=== PATIENT | female | born 1975 | race Hispanic/Latino ===

== ENCOUNTER 2018-09-22 15:05 | Emergency (ER) | payer BC ==
[2018-09-22 15:23] VITALS: BMI 26.2
[2018-09-22 15:26] VITALS: O2SAT 97
[2018-09-22] MEDS ORDERED: Sodium Chloride 0.9% 1,000 ML ONE (15:39)
[2018-09-22] MEDS ORDERED: Sodium Chloride 0.9% 1,000 ML IV ONE (15:41)
[2018-09-22 15:56] LABS: BASO # 0.1 K/uL (0.0-0.2); BASO % 0.5 % (0.0-2.0); EOS % 0.1 % (0.0-4.0); HEMOGLOBIN 14.9 g/dL (11.0-16.0); LYMPH # 1.6 K/uL (1.0-4.3); MEAN CELL VOLUME 86.3 fL (81.0-99.0); MEAN CORPUSCULAR HEMOGLOBIN 29.2 pg (27.0-31.0); MEAN CORPUSCULAR HGB CONC 33.8 g/dL (33.0-37.0); MONO # 0.3 K/uL (0.0-0.8); MONO % 2.9 % (0.0-10.0); NEUT # 9.3 K/uL (1.8-7.0); NEUT % 82.5 % (50.0-75.0); RBC 5.1 Mil/uL (3.80-5.20); RED CELL DISTRIBUTION WIDTH 13.9 % (11.5-14.5); WHITE BLOOD COUNT 11.3 K/uL (4.8-10.8)
[2018-09-22 16:10] LABS: ALB/GLOB RATIO 1.3 (1.0-2.1); ALBUMIN 4.9 g/dL (3.5-5.0); ALT/SGPT 25 U/L (9-52); AST/SGOT 21 U/L (14-36); BLOOD UREA NITROGEN 14 mg/dL (7-17); CALCIUM 9.9 mg/dl (8.6-10.4); GFR NON-AFRICAN AMERICAN > 60; LIPASE 52 U/L (23-300)
--- NOTE | 2018-09-22 16:21 | RAD ---
Date of service: 09/22/2018 PROCEDURE: Radiographs of the chest and abdomen (obstructive series) HISTORY: abd pain COMPARISON: No prior. TECHNIQUE: AP radiograph of the chest, with upright and supine radiographs of the abdomen. FINDINGS: CHEST: Lungs: No acute infiltrate bilaterally. Linear atelectasis or fibrosis in the left base. Cardiovascular: Normal size heart. No pulmonary vascular congestion. No aortic atherosclerotic calcification present Pleura: No pleural fluid. No pneumothorax. Other findings: Elevated right hemidiaphragm noted. ABDOMEN AND PELVIS: Bowel: Unremarkable bowel gas pattern. No evidence of mechanical obstruction. Free air: None. Bones: Unremarkable. Other findings: None. IMPRESSION: Linear atelectasis or fibrosis seen at the left base with elevated right hemidiaphragm noted. No acute infiltrate or pleural effusion identified bilaterally. Nonobstructive bowel gas pattern appreciated. Further clinical correlation recommended. CT is available for follow-up if clinically warranted.
[2018-09-22 17:06] LABS: SQUAMOUS EPITHIAL 1 /hpf (0-5); URINE BACTERIA RARE (<OCC); URINE BILIRUBIN NEGATIVE (NEGATIVE); URINE BLOOD NEGATIVE (NEGATIVE); URINE CLARITY Clear (Clear); URINE COLOR Yellow (YELLOW); URINE GLUCOSE (UA) 1+ mg/dL (Normal); URINE LEUKOCYTE ESTERASE NEG Leu/uL (Negative); URINE PROTEIN 2+ mg/dL (NEGATIVE); URINE UROBILINOGEN NORMAL mg/dL (0.2-1.0)
--- NOTE | 2018-09-22 17:18 | C.PDOC ---
History Of Present Illness 43 year old female presents to the ED for evaluation of epigastric abdominal pain associated with nausea and vomiting since 0600 today. Patient reports positive sick contact with her son. She denies fever, chills, chest pain, shortness of breath, recent travel. Patient has history of liposuction, but otherwise denies surgical abdominal history. Time Seen by Provider: 09/22/18 15:22 Chief Complaint (Nursing): Abdominal Pain History Per: Patient History/Exam Limitations: no limitations Onset/Duration Of Symptoms: Hrs Current Symptoms Are (Timing): Still Present Location Of Pain/Discomfort: Epigastric Quality Of Discomfort: "Pain" Associated Symptoms: Nausea, Vomiting. denies: Fever, Chills, Chest Pain Recent travel outside of the [place]: No Additional History Per: Patient Abnormal Vaginal Bleeding: No Past Medical History Reviewed: Historical Data, Nursing Documentation, Vital Signs Vital Signs: Last Vital Signs Temp 98.3 F 09/22/18 15:23 Pulse 77 09/22/18 15:23 Resp 20 09/22/18 15:23 BP 143/87 09/22/18 15:23 Pulse Ox 97 09/22/18 15:23 - Medical History PMH: No Chronic Diseases Surgical History: No Surg Hx - [facility] Procedures LAPAROSCOP LYSIS-PERITONEAL ADHES (10/30/06) LOCAL EXCIS BREAST LES (09/08/07) OTH LAPAROSCOP LOCAL EXCIS/DESTRUCT OVARY (10/30/06) Family History: States: Unknown Family Hx - Social History Hx Alcohol Use: No Hx Substance Use: No - Immunization History Hx Tetanus Toxoid Vaccination: No Hx Influenza Vaccination: Yes Hx Pneumococcal Vaccination: No Review Of Systems Constitutional: Negative for: Fever, Chills Gastrointestinal: Positive for: Nausea, Vomiting, Abdominal Pain Physical Exam - Physical Exam Appears: Non-toxic, No Acute Distress Skin: Normal Color, Warm, Dry Head: Atraumatic, Normacephalic Eye(s): bilateral: Normal Inspection Oral Mucosa: Moist Neck: Supple Chest: Symmetrical, No Deformity, No Tenderness Cardiovascular: Rhythm Regular, No Murmur Respiratory: Normal Breath Sounds, No Rales, No Rhonchi, No Wheezing Gastrointestinal/Abdominal: Soft, Tenderness (epigastric ), No Guarding, No Rebound Extremity: Normal ROM, Capillary Refill (less than 2 seconds ) Neurological/Psych: Oriented x3, Normal Speech, Normal Cognition ED Course And Treatment - Laboratory Results Result Diagrams: 09/22/18 15:50 09/22/18 15:50 O2 Sat by Pulse Oximetry: 97 (on RA) Pulse Ox Interpretation: Normal Medical Decision Making Medical Decision Making: Assessment: abdominal pain, Plan: * bloodwork * urinalysis * obstructive series abdomen * EKG * Pepcid IVP * Toradol IVP * Zofran IVP * IV Fluids * reassess and disposition Progress: Bloodwork, urinalysis, Obstructive Series abdomen, EKG ordered and reviewed. Pepcid IVP, Toradol IVP, Zofran IVP, and IV Fluids given. 1733- patient states improvement. Tolerated po's and feel asymptomatic at this time Will discharge home and advise follow up with pmd within 2 days. Disposition Counseled Patient/Family Regarding: Studies Performed, Diagnosis, Need For Followup, Rx Given - Disposition Referrals: Glenis Soni MD [Medical Doctor] - Disposition: HOME/ ROUTINE Disposition Time: 17:34 Condition: IMPROVED Additional Instructions: follow up with your doctor within 2 days call to make an appointment take medications as needed return to ER if symptoms worsens or progress Prescriptions: Famotidine [Pepcid] 20 mg PO BID #20 tab Ondansetron ODT [Zofran ODT] 4 mg PO TID PRN #12 odt PRN Reason: Nausea/Vomiting Instructions: Nausea and Vomiting, Adult Forms: [facility] ([place]), General Discharge Instructions, Work Excuse - Clinical Impression Clinical Impression: Abdominal pain - Scribe Statement The provider has reviewed the documentation as recorded by the Scribe (Bri Valencia) Provider Attestation: All medical record entries made by the Scribe were at my direction and per sonally dictated by me. I have reviewed the chart and agree that the record accurately reflects my personal performance of the history, physical exam, medical decision making, and the department course for this patient. I have also personally directed, reviewed, and agree with the discharge instructions and disposition.
[2018-09-22 17:36] VITALS: BP 133/81; PULSE 74; RESP 18; TEMP 98.1
== END 2018-09-22 17:55 | disposition home or self-care (01) ==
LOC: C.ER 15:05
DX: R10.13 Epigastric pain (principal)
CPT/HCPCS: 74022; 80053; 81001; 83690; 83735; 84484; 84702; 85025; 96361; 96374; 96375; 99285; J1885; J2405; J7030